=== PATIENT | male | born 1995 | race Asian ===

== ENCOUNTER 2017-10-16 21:09 | Emergency (ER) | payer OTHER, MEDICAID ==
[~2017-10-16] VITALS: Ht 177.8 cm; Wt 77.1 kg
--- NOTE | 2017-10-16 21:17 | NUR ---
Gwendolyn ennis in ED - 10/16/17 at 2158 by MARNI VARSHA Castro at bedside evaluating the patient
[2017-10-16 21:19] VITALS: BP_SYST 153
--- NOTE | 2017-10-16 21:19 | NUR ---
Patient to ER bed 8 to gown for evaluation. Side rails up. Report given to Rena ASHFORD.
--- NOTE | 2017-10-16 21:22 | NUR ---
ER MD Castro at bedside evaluating the patient
--- NOTE | 2017-10-16 21:25 | NUR ---
Patient brought to ER by father C/O 2 days of "bug bites" on lower legs. Left lateral ankle 6x8cm erythema with one puncture site, non-draining. Right anterior lower leg erythema 4 cm diameter non-draining. No other medical complaints. No signs of acute distress.
[2017-10-16] MEDS ORDERED: DIPH-TET-PERTUS Vaccine 0.5 ML VIAL (ADACEL) I.M. ONE (21:30)
[2017-10-16 21:48] VITALS: BP_SYST 132
--- NOTE | 2017-10-16 21:48 | NUR ---
Patient given written and verbal discharge instructions and verbalizes understanding. ER MD Castro discussed with patient the results and treatment provided. Patient in stable condition. ID arm band removed. Rx of Clindamycin given. Patient educated on pain management and to follow up with PMD. Pain Scale 0/10. Opportunity for questions provided and answered. Medication side effect fact sheet provided.
== END 2017-10-16 21:48 | disposition home or self-care (01) ==
LOC: SED 21:09
DX: S90.861A Insect bite (nonvenomous), right foot, initial encounter (principal); L03.115 Cellulitis of right lower limb; W57.XXXA Bitten or stung by nonvenomous insect and other nonvenomous arthropods, initial encounter; Y93.89 Activity, other specified; Y92.89 Other specified places as the place of occurrence of the external cause; Y99.8 Other external cause status
CPT/HCPCS: 90715; 99283